=== PATIENT | female | born 1990 | race Caucasian/White ===

== ENCOUNTER 2025-06-14 13:36 | Emergency (ER) | payer BC, SELFPAY ==
--- OUTSIDE RECORDS SUMMARY | 2013-08-01 06:57 | XMS_ITS | Continuity of Care Document ---
Author Organization [facility] C Address [address] [place] [address] Phone Care Team Providers Care Office Equipment Technician Name Role Phone Jamilah STALLINGS, Mitchel Unavailable Unavailable Advance Directives Directive Yes / No Effective Date File Name No Information Encounters Encounter Description Practice Location Reason(s) For Visit Diagnoses Date Provider Encounter Disposition [facility], [address] [place], [address], [place] tel:[phone] [facility] No Information Jamilah Grullon. [address], [place], [address], [place]. tel:[phone] Family History Family Member Type Diagnosis Age At Onset No Information Payers Payer name Insurance type Identifiers Authorization(s) Com [facility] Claims [place] sreedhar ID: [id number] Name: Coverage Status Eligibility Check on: UnknownRelationship to Subscriber: selfPayer Address: [address], Claims Processing Dept, [place], [place], [facility], [facility] Phone: Social History Type Description Quantity Date Captured Comments Sex Female Yes - Patient is currently Smoking Status No Information Current Gender Female (finding) Chief Complaint And Reason For Visit No Information History Of Present Illness Encounter Date Complaint History Of Prese nt Illness No Information Functional Status Date Description Comments No Information Instructions Date Instruction Additional Infor mation No Information Assessments Type Assessment Date No Information
[2025-06-14 13:50] VITALS: BP 132/76; PULSE 82; RESP 18; TEMP 37; O2SAT 100; BMI 28.7
--- NOTE | 2025-06-14 13:55 | HMH.EDGENADL ---
Discharge Plan Referrals Follow up/Referrals: Ritika Murillo APRN [Primary Care Provider, Medical] - See instructions Activity Restrictions/Add. Instructions Additional Instructions/Restrictions: At this time it was felt you are safe to be discharged home. If new or worsening symptoms please do not hesitate to return the emergency department. Do not submerge your finger in water, ideally covered in a glove when you shower. Clinical Impressions Clinical Impression: Laceration of finger Instructions Patient Instructions: DI for Laceration Repair Print Language Print Language: Kuwaiti Discharge ED Provider: Judah Orr General Adult HPI General Chief complaint: Wound/Laceration Stated complaint: Laceration Middle Finger Left Hand Time Seen by Provider: 06/14/25 13:46 Mode of Arrival: Ambulatory Source of Information: Patient Description of Symptoms (Recalled from ER Triage Doc. by RN): PT cut her left middle finger with a knife about 30 minutes ago. History of Present Illness HPI narrative: Patient is a 35-year-old with no pertinent past medical history who presents to the emergency department for evaluation of a cut to the left middle fingertip. Onset was acute, cut it with a knife while cutting butter. No other traumatic injuries at this time. Please note that above description of symptoms, in this electronic medical record under categorization of recalled from ER triage doctor by RN are reflective of an initial nursing assessment, however, is not reflective of my full history and physical exam that was personally taken and clarified. Consequentially, this preceding description of symptoms, which may include the patient's categorized chief complaint in the EMR, do not reflect my personal clinical impression, and the ultimate description of history of present illness and patient stated complaints should be deferred to this section of the note. Unless stated otherwise or congruent with this section of the note, additional signs, symptoms, or incongruence should be interpreted as inaccurate with my clinical impression. [facility] Disclaimer: The information contained in this section may have been updated after the patient was seen, as this information can be updated by other users. Social History Smoking Status: Current every day smoker alcohol intake: never current occupational status: other Travel in the last 8 weeks?: None ROS Obtained: Yes Systems reviewed as appropriate & no additional complaints except as documented Physical Exam General General appearance: alert and in no apparent distress Head Head exam: atraumatic and normocephalic Eye Eye exam: Present PERRL and EOMI ENT ENT exam: Present mucous membranes moist Neck Neck exam: Present normal inspection Chest Chest inspection: Present normal inspection and symmetric chest wall rise Respiratory Respiratory exam: Absent respiratory distress Cardiovascular Cardiovascular exam: Present regular rate and normal rhythm Extremities Exam Extremities exam: Present other (1 cm linear laceration over the left third fingertip that is hemostatic and well-approximated.) Neurological Exam Neurological exam: Present alert Psychiatric Psychiatric exam: Present normal affect Skin Skin exam: Present warm and dry Medical Decision Making Medical Records Screening: Per USPSTF and CDC recommendations, given the prevalence of disease in our region, it is our hospital?s policy to screen for HIV and viral Hepatitis for all patients aged 18 and over and those with ongoing risk factors. Gm Inquiry Pt receiving controlled substance: No Vital Signs: 06/14/25 13:50 Temperature 98.6 F Temperature Source Oral Pulse Rate [Right] 82 Respiratory Rate 18 Blood Pressure [Right Arm] 132/76 Blood Pressure Mean [Right Arm] 94 Blood Pressure Source [Right Arm] Automatic Cuff Blood Pressure Position [Right Arm] Sitting 02 Sat by Pulse Oximetry 100 Oxygen Delivery Method Room Air Medical Decision Narrative: In summary patient is a 35-year-old female with past medical history described above who presents to the emergency department for evaluation of a laceration over her left middle finger. Patient is hemodynamically stable upon arrival. Wound is superficial and well opposed. Not over the joint. Was repaired with glue and then will be splinted in place to prevent secondary trauma to prevent reopening. X-ray imaging was considered but wound is not deep enough no concern for bony involvement or foreign body will be deferred. Tdap not up-to-date will be administered today. Patient is appropriate for outpatient management at this time. Procedure: Procedure performed was laceration repair. Procedure performed by skilled nursing case manager under my supervision. Wound was cleaned with Hibiclens after being soaked. Superficial laceration was repaired using Dermabond with good effect. Finger was splinted in place. Patient tolerated the procedure well there were no immediate complications. Critical Care Critical Care Time Critical Care Time: No
--- OUTSIDE RECORDS SUMMARY | 2025-06-14 13:59 | XMS_ITS | Clinical Summary ---
Author Organization [employer] ([place], [place], [place], [place], [place]) Address [address] [place] [address] Care Team Providers Care Auto Tester Name Role Phone Unavailable Primary Care Provider Unavailabl e Social History Tobacco Use Types Packs/Day Years Used Date Smoking Tobacco: Never Assessed Comments Unknown Sex and Gender Information Value Date Recorded Sex Assigned at Not on file Legal Sex Female 4:32 PM CDT Gender Identity Not on file Sexual Orientation Not on file Plan of Treatment Not on file
--- OUTSIDE RECORDS SUMMARY | 2025-06-14 13:59 | XMS_ITS | Encounter Summary ---
Author Organization [employer] ([place], [place], [place], [place], [place]) Address [address] [place] [address] Care Team Providers Care Pin Drafting Machine Tender Name Role Phone Unavailable Primary Care Provider Unavailleah e Encounter Details Date Type Department Care Team (Late st Contact Info) Description 09/26/2020 Transcribed Document [facility] Family Medicine [address] [place] [address] ProviderVargas MD [address] [place] [address] Social History Tobacco Use Types Packs/Day Years Used Date Smoking Tobacco: Never Assessed Comments Unknown Sex and Gender Information Value Date Recorded Sex Assigned at Not on file Legal Sex Female 4:32 PM CDT Gender Identity Not on file Sexual Orientation Not on file documented as of this encounter Miscellaneous Notes * Cerner Conversion Note - Vargas ProviderMD - 09/26/2020 12:58 PM CDT [facility] Main OR IntraOp Summary Primary Physician: CHLOÉ SNOW MD-CAP JEWEL PLATE ASSEMBLER Finalized Date/Time: 09/26/20 13:19:11 Pt. Name: JAQUELINE LOCKE /Sex: 1990 Female Med Rec #: [id number] Physician: CHLOÉ SNOW MD-CAP JEWEL PLATE ASSEMBLER Financial #: [id number] Pt. Type: O Room/Bed: Admit/Disch: 09/26/20 10:50:00 - Institution: Rm IntraOp Case Attendance Entry 1 Entry 2 Entry 3 Case Attendee CHLOÉ SNOW MD-CAP JEWEL PLATE ASSEMBLER Bee Pozo, JULIANA Carrasquillo Role Performed Surgeon/Proceduralist, Scrub, First Scrub, Second First Time In 09/26/20 12:38:00 09/26/20 12:38:00 09/26/20 12:38:00 Time Out 09/26/20 13:11:00 09/26/20 13:11:00 09/26/20 13:11:00 Procedure Hysteroscopy Operative Hysteroscopy Operative Hysteroscopy Operative Other Attendee Superficial Wound Closed By: Last Modified By: FELICIA KHAN RN MARX, CONNIE, RN MARX, CONNIE, RN 09/26/20 13:19:10 09/26/20 13:19:10 09/26/20 13:19:10 Entry 4 Entry 5 Case Attendee IKER MUNROE BILL DENNIS CONNIE, KELLIE MOBILE UI/UX DESIGNER Role Performed MOBILE UI/UX DESIGNER/Nurse Zoning Engineer Round Corner Cutter Operator, First Time In 09/26/20 12:38:00 09/26/20 12:38:00 Time Out 09/26/20 13:11:00 09/26/20 13:11:00 Procedure Hysteroscopy Operative Hysteroscopy Operative Other Attendee Superficial Wound Closed By: Last Modified By: FELICIA KHAN RN MARX, CONNIE, RN 09/26/20 13:19:10 09/26/20 13:19:10 [facility] IntraOp Case Attendance Audit 09/26/20 13:19:10 Multimedia Producer: AKIRA Modifier: MARXCO 1 <+> Time Out 1 <*> Procedure Hysteroscopy Operative 2 <+> Time Out 2 <*> Procedure Hysteroscopy Operative 3 <+> Time Out 3 <*> Procedure Hysteroscopy Operative 4 <+> Time Out 4 <*> Procedure Hysteroscopy Operative 5 <+> Time Out 5 <*> Procedure Hysteroscopy Operative 09/26/20 12:53:54 Multimedia Producer: [email or web address] Modifier: MARXCO <+> 1 Time In <+> 1 Procedure 2 <+> Time In 2 <*> Procedure Hysteroscopy Operative 3 <+> Time In 3 <*> Procedure Hysteroscopy Operative 4 <+> Time In 4 <*> Procedure Hysteroscopy Operative 5 <+> Time In 5 <*> Procedure Hysteroscopy Operative [facility] IntraOp Case Times Entry 1 Patient In Room Time 09/26/20 12:38:00 Out Room Time 09/26/20 13:11:00 Anesthesia Start Time 09/26/20 12:38:00 Stop Time 09/26/20 13:11:00 Anesthesia Ready 09/26/20 12:38:00 Surgery / Procedure Times Start Time 09/26/20 12:58:00 Stop Time 09/26/20 13:06:00 Last Modified By: FELICIA KHAN RN 09/26/20 13:18:48 [facility] IntraOp Case Times Audit 09/26/20 13:18:48 Multimedia Producer: AKIRA Modifier: MARXCO <+> 1 Out Room Time <+> 1 Stop Time <+> 1 Start Time <+> 1 Stop Time [facility] IntraOp Cautery Entry 1 ESU Identification Cautery Type Monopolar ESU ID Number [id number] ID Type Hospital Number Cautery Settings Cut Setting 0 Coag Setting 30 ESU Grounding Pad Ground Pad Type Adult Grounding Pad Site Left thigh Grounding Pad FELICIA KHAN RN Applied By Grounding Pad Site Intact Skin Condition Before Cautery Grounding Pad Site Unchanged Skin Condition After Cautery Last Modified By: FELICIA KHAN RN 09/26/20 12:31:27 [facility] IntraOp Communication Entry 1 Communication To Family/Significant other Communication By FELICIA KHAN RN Last Modified By: FELICIA KHAN RN 09/26/20 12:31:35 [facility] IntraOp Counts Verification Entry 1 Procedure Hysteroscopy Operative Count Info Count Type Sponge Counts Verification Baseline/pre-procedure Sequence Count Results Not Applicable Counts Performed By Count Performed By Bee Pozo Scub Tech (Scrub) Count Performed By FELICIA KHAN RN (RN) Last Modified By: FELICIA KHAN RN 09/26/20 12:31:49 [facility] IntraOp Counts Final Entry 1 Procedure Hysteroscopy Operative Final Count Info Count Type Sponge Counts Verification Skin Closure/end of Sequence procedure Count Results Correct, surgeon notified Counts Performed By Count Performed By Bee Pozo Scub Tech (Scrub) Count Performed By FELICIA KHAN, RN (RN) Last Modified By: FELICIA KHAN RN 09/26/20 13:19:00 [facility] IntraOp Counts Final Audit 09/26/20 13:19:00 Multimedia Producer: AKIRA Modifier: MARXCO 1 <*> Procedure Hysteroscopy Operative 1 <+> Count Results [facility] IntraOp Cultures and Spec Summary Entry 1 Cultrures and Specimens Specimen Ordered: Yes Test(s) Routine/Path-Lab Requested/Final Disposition Last Modified By: FELICIA KHAN RN 09/26/20 12:51:43 S[facility] IntraOp Departure from OR Entry 1 Integumentary Assessment Integumentary WDL Assessment WDL Transfer/Handoff Transfer to PACU Phase I Handoff Method Bedside/Face to face Post-op Transport Stretcher/Gurney Via Patient Transport FELICIA KHAN RN, Accompanied by IKER MUNROE CRNA Last Modified By: FELICIA KHAN RN 09/26/20 12:51:53 [facility] IntraOp Fire Risk Assessment Entry 1 Fire Info Surgical Site or 0- No Incision Above the Xyphoid Open O2 Source 0- No (Mask or Cannula) Available Ignition 1- Yes (ESU, Laser, Light Source) Fire Risk 1 Assessment Score Fire Score Fire Risk Yes Assessment Complete Fire Risk FELICIA KHAN RN Assessment Verified By Fire Risk 09/26/20 12:38:00 Assessment Verified Date/Time Fire Risk Last Modified By: FELICIA KHAN RN 09/26/20 12:52:20 S[facility] IntraOp General Case Inbound Ingredient Logistics Specialist 1 Case Information OR OR 10 SJE Case Level 1 Room Verified Yes Wound Class II - Clean-Contaminated Specialty Gynecology Anesthesia Type General ASA Class 2 Diagnosis Preop Diagnosis IUD complications Postop Same As Preop Yes Postop Diagnosis IUD complications Last Modified By: FELICIA KHAN RN 09/26/20 12:56:11 S[facility] IntraOp General Case Data Audit 09/26/20 12:56:11 Multimedia Producer: AKIRA Modifier: MARXCO <+> 1 ASA Class <+> 1 Anesthesia Type <+> 1 Postop Same As Preop <+> 1 Preop Diagnosis <+> 1 Postop Diagnosis <+> 1 Room Verified S[facility] IntraOp Intraoperative Assessment Entry 1 Valid History / Yes Physical in Chart Preoperative Yes Checklist Reviewed/Evaluated Allergies Reviewed Yes Patient is Latex No Sensitive Level of WDL Consciousness (WDL = Alert, Oriented to Person, Place, and Time) Skin Assessment Yes Verified Present Upon IVs Arrival to OR Last Modified By: FELICIA KHAN RN 09/26/20 12:52:26 S[facility] IntraOp Intraoperative Equipment Entry 1 Type Equipment Equipment Equipment Other Setting light source - tower Intraop Monitoring Antiembolic Devices Antiembolic Devices Sequential compression device, knee high Antiembolic Device Bilateral Location Antiembolic Device [id number] ID Number Scopes Photo/Video Documentation Photo No Video No Last Modified By: FELICIA KHAN RN 09/26/20 12:53:27 S[facility] IntraOp Patient Positioning Entry 1 Procedure Hysteroscopy Operative Left Arm Position Secured on padded arm board Right Arm Position Secured on padded arm board Left Leg Position Secured in stirrup Right Leg Position Secured in stirrup Feet Uncrossed Yes Pressure Points Yes Checked Positioning Devices Arm Board, Pillows, Stirrups/Leg [place], Sling Positioned By CHLOÉ SNOW MD-CAP JEWEL PLATE ASSEMBLER, FELICIA KHAN, KELLIE, IKER MUNROE, DARSHANA Position Verified Positioning Yes Verified by Anesthesia Positioning Yes Verified by Surgeon Last Modified By: FELICIA KHAN RN 09/26/20 12:53:46 SJE IntraOp Sign In Entry 1 Patient, Site, Yes Procedure Identified Surgical Consent Yes Confirmed Relevant Surgical Yes Documents Available Surgical Site N/A Marked by person performing procedure Anesthesia Machine Yes Check Completed Medication Checks Yes Completed Allergies Yes Airway Blood Loss Risk No Blood Loss No Intervention Equipment Prepared and Ready Hypothermia Risk Yes Warming Measures Yes Taken Last Modified By: FELICIA KHAN RN 09/26/20 12:54:51 SJE Intra Op Sign Out Entry 1 RN Confirmation Surgical Yes Procedure(s) Identified Instrument, Sponge Yes and Sharps Counts Correct/Documented Equipment Problems Yes Documented Specimen Labeled Yes Correctly Urinary Catheter Yes Documented in IView Vila Patient Yes Recovery Concerns Reviewed with Anesthesia Provider, Surgeon and RN Vila Patient Yes Management Concerns Reviewed with Anesthesia Provider, Surgeon and RN Safety Checklist Yes Elements Complete? RN Sign Out FELICIA KHAN RN Signature RN Sign Out 09/26/20 13:18:00 Signature Date/Time Plan of Care Outcome - Fire Risk OUTCOME STATEMENT: Goal met Patient is free from injury related to surgical fire Plan of Care Outcome - Pt Positioning OUTCOME STATEMENT: Goal met Absence of signs and symptoms of positioning injury. Plan of Care Outcome - Skin Prep OUTCOME STATEMENT: Goal met Intraoperative care is consistent with measures to prevent infection Plan of Care Outcome - Xray/Images OUTCOME STATEMENT: N/A Absence of observable signs or symptoms of radiation injury Plan of Care Outcome - Counts OUTCOME STATEMENT: Goal met Absence of signs and symptoms of injury related to extraneous objects Last Modified By: FELICIA KHAN RN 09/26/20 13:18:53 SJE Intra Op Sign Out Audit 09/26/20 13:18:53 Multimedia Producer: [email or web address] Modifier: MANOJO <+> 1 RN Sign Out Signature Date/Time SJE IntraOp Skin Prep Entry 1 Procedure Hysteroscopy Operative Prescribed N/A Pre-Surgical Prep Completed Prep Area VAGINA Intraop Prep Integumentary WDL Assessment WDL Prep Agents Betadine scrub Prep by FELICIA KHAN RN Hair Removal Last Modified By: FELICIA KHAN RN 09/26/20 12:55:45 SJE IntraOp Surgical Procedures Entry 1 Procedure Hysteroscopy Operative Additional HYSTEROSCOPY WITH IUD Procedure REMOVAL Description Primary Procedure Yes Primary Surgeon CHLOÉ SNOW MD-CAP JEWEL PLATE ASSEMBLER Start 09/26/20 12:58:00 Stop 09/26/20 13:06:00 Anesthesia Type General Specialty Gynecology Wound Class II - Clean-Contaminated Last Modified By: FELICIA KHAN RN 09/26/20 13:19:06 SJE IntraOp Surgical Procedures Audit 09/26/20 13:19:06 Multimedia Producer: AKIRA Modifier: AKIRA <+> 1 Start <+> 1 Stop SJE IntraOp Time Out Entry 1 Procedure to be Hysteroscopy Operative Performed Time Out Time Out Pause Time 09/26/20 12:58:00 All activity Yes suspended (unless life threatening emergency) Team Verbally Correct patient Confirms Information identity, Correct side and site are marked, Consent form is present and accurate, Agreement on the procedure to be done, Correct patient position, Relevant images/results properly labeled/appropriately displayed, Confirm antibiotics have been administered, Confirm the skin prep has dried, Confirm prosthesis/implant/devic e is present, Performed in location of procedure after prepped/draped, Performed before each procedure if multiple procedures, Reconcile problems if responses among team members differ Antibiotic Yes Prophylaxis Administered Or In Progress Within the Last 60 Minutes Beta Otilio N/A Administered Venous N/A Thromboembolism Prophylaxis Required Anticipated Critical Events Surgeon None expected Anesthesia Provider None expected Nursing Assures Sterility of instruments Essential Imaging N/A Labeled and Displayed Last Modified By: FELICIA KHAN RN 09/26/20 12:56:48 S[facility] IntraOp Time Out Audit 09/26/20 12:56:48 Multimedia Producer: AKIRA Modifier: AKIRA 1 <+> Time Out Pause Time 1 <*> Procedure to be Performed Hysteroscopy Operative Case Comments <None> Finalized By: BILL, FELICIA, RN Document Signatures Signed By: FELICIA KHAN RN 09/26/20 13:19 documented in this encounter Plan of Treatment Not on file documented as of this encounter Visit Diagnoses Not on filedocumented in this encounter
--- OUTSIDE RECORDS SUMMARY | 2025-06-14 13:59 | XMS_ITS | Encounter Summary ---
Author Organization [email or web address] ([place], [place], [place], [place], [place]) Address [address] [place] [address] Care Team Providers Care Civil Drafter Name Role Phone Unavailable Primary Care Provider Unavailleah e Encounter Details Date Type Department Care Team (Late st Contact Info) Description 09/26/2020 Transcribed Document [facility] [place] [facility] [address] [place] [address] ProviderVargas MD [address] [place] [address] Social History Tobacco Use Types Packs/Day Years Used Date Smoking Tobacco: Never Assessed Comments Unknown Sex and Gender Information Value Date Recorded Sex Assigned at Not on file Legal Sex Female 4:32 PM CDT Gender Identity Not on file Sexual Orientation Not on file documented as of this encounter Miscellaneous Notes * Cerner Conversion Note - Vargas Smith MD - 09/26/2020 1:49 PM CDT [facility] [address] [place] [address] JAQUELINE LOCKE :1990 Visit Time:09/26/2020 What to do next Your Diagnosis Unspecified complication of genitourinary prosthetic device, implant and graft, initial encounter, Unspecified complication of genitourinary prosthetic device, implant and graft, initial encounter Instructions From Your Care Team Nothing in vagina for 1 week. Keep follow up appointment. Can shower no tub baths Follow-Up Appointments Follow Up with CHLOÉ SNOW MD-ICE SKATER When 10/03/2020 10:10 AM EDT Where: [address] [facility] [address] [place] [address]- Medications What How Much When Instructions Next Dose atorvastatin (atorvastatin 40 mg oral tablet) Every Day Take your medications faithfully. Do NOT skip medication. Do NOT stop taking medications without the direction of a physician. Carry a list of your medications with you at all times, and take this medication list with you to your first follow up visit. Report any side effects. Avoid herbal remedies unless discussed with your physician. As part of your treatment plan, your physician may have prescribed a limited course of a controlled substance. This medication may be given to help people with moderate or severe pain or for other medical conditions, but there are risks involved with treatment. Common side effects may include nausea, constipation, drowsiness, sweating, itching, dry mouth, and rash. More serious side effects may include cognitive and motor impairment, like problems with thinking, concentrating, alertness, and movement (e.g. slowed reflexes), and driving and operating heavy machinery can be dangerous. It is important for you to talk to your physician if you have these side effects or questions. These controlled substances can produce physical dependence and be habit-forming if taken for an extended period of time, which means that the body has gotten used to them and may experience withdrawal symptoms if they are abruptly stopped. Withdrawal symptoms can include runny nose, sweating, goose bumps, diarrhea, abdominal cramping, rapid heartbeat, difficulty sleeping, and nervousness. Please dispose of unused and medications per pharmacy guidance. Education Materials General Anesthesia, Adult, Care After This sheet gives you information about how to care for yourself after your procedure. Your health care provider may also give you more specific instructions. If you have problems or questions, contact your health care provider. What can I expect after the procedure? After the procedure, the following side effects are common: ??? Pain or discomfort at the IV site. ??? Nausea. ??? Vomiting. ??? Sore throat. ??? Trouble concentrating. ??? Feeling cold or chills. ??? Weak or tired. ??? Sleepiness and fatigue. ??? Soreness and body aches. These side effects can affect parts of the body that were not involved in surgery. Follow these instructions at home: For at least 24 hours after the procedure: ??? Have a responsible adult stay with you. It is important to have someone help care for you until you are awake and alert. ??? Rest as needed. ??? Do not: ? Participate in activities in which you could fall or become injured. ? Drive. ? Use heavy machinery. ? Drink alcohol. ? Take sleeping pills or medicines that cause drowsiness. ? Make important decisions or sign legal documents. ? Take care of children on your own. Eating and drinking ??? Follow any instructions from your health care provider about eating or drinking restrictions. ??? When you feel hungry, start by eating small amounts of foods that are soft and easy to digest (bland), such as toast. Gradually return to your regular diet. ??? Drink enough fluid to keep your urine pale yellow. ??? If you vomit, rehydrate by drinking water, juice, or clear broth. General instructions ??? If you have sleep apnea, surgery and certain medicines can increase your risk for breathing problems. Follow instructions from your health care provider about wearing your sleep device: ? Anytime you are sleeping, including during daytime naps. ? While taking prescription pain medicines, sleeping medicines, or medicines that make you drowsy. ??? Return to your normal activities as told by your health care provider. Ask your health care provider what activities are safe for you. ??? Take whol-qxo-makylqb and prescription medicines only as told by your health care provider. ??? If you smoke, do not smoke without supervision. ??? Keep all follow-up visits as told by your health care provider. This is important. Contact a health care provider if: ??? You have nausea or vomiting that does not get better with medicine. ??? You cannot eat or drink without vomiting. ??? You have pain that does not get better with medicine. ??? You are unable to pass urine. ??? You develop a skin rash. ??? You have a fever. ??? You have redness around your IV site that gets worse. Get help right away if: ??? You have difficulty breathing. ??? You have chest pain. ??? You have blood in your urine or stool, or you vomit blood. Summary ??? After the procedure, it is common to have a sore throat or nausea. It is also common to feel tired. ??? Have a responsible adult stay with you for the first 24 hours after general anesthesia. It is important to have someone help care for you until you are awake and alert. ??? When you feel hungry, start by eating small amounts of foods that are soft and easy to digest (bland), such as toast. Gradually return to your regular diet. ??? Drink enough fluid to keep your urine pale yellow. ??? Return to your normal activities as told by your health care provider. Ask your health care provider what activities are safe for you. This information is not intended to replace advice given to you by your health care provider. Make sure you discuss any questions you have with your health care provider. Document Revised: 06/10/2018 Document Reviewed: 01/21/2018 [employer] Patient Education ?? 2020 [employer]. Hysteroscopy, Care After This sheet gives you information about how to care for yourself after your procedure. Your health care provider may also give you more specific instructions. If you have problems or questions, contact your health care provider. What can I expect after the procedure? After the procedure, it is common to have: ??? Cramping. ??? Bleeding. This can vary from light spotting to menstrual-like bleeding. Follow these instructions at home: Activity ??? Rest for 1???2 days after the procedure. ??? Do not douche, use tampons, or have sex for 2 weeks after the procedure, or until your health care provider approves. ??? Do not drive for 24 hours after the procedure, or for as long as told by your health care provider. ??? Do not drive, use heavy machinery, or drink alcohol while taking prescription pain medicines. Medicines ??? Take ylkm-jmr-byahvdh and prescription medicines only as told by your health care provider. ??? Do not take aspirin during recovery. It can increase the risk of bleeding. General instructions ??? Do not take baths, swim, or use a hot tub until your health care provider approves. Take showers instead of baths for 2 weeks, or for as long as told by your health care provider. ??? To prevent or treat constipation while you are taking prescription pain medicine, your health care provider may recommend that you: ? Drink enough fluid to keep your urine clear or pale yellow. ? Take owab-ild-acnpcsl or prescription medicines. ? Eat foods that are high in fiber, such as fresh fruits and vegetables, whole grains, and beans. ? Limit foods that are high in fat and processed sugars, such as fried and sweet foods. ??? Keep all follow-up visits as told by your health care provider. This is important. Contact a health care provider if: ??? You feel dizzy or lightheaded. ??? You feel nauseous. ??? You have abnormal vaginal discharge. ??? You have a rash. ??? You have pain that does not get better with medicine. ??? You have chills. Get help right away if: ??? You have bleeding that is heavier than a normal menstrual period. ??? You have a fever. ??? You have pain or cramps that get worse. ??? You develop new abdominal pain. ??? You faint. ??? You have pain in your shoulders. ??? You have shortness of breath. Summary ??? After the procedure, you may have cramping and some vaginal bleeding. ??? Do not douche, use tampons, or have sex for 2 weeks after the procedure, or until your health care provider approves. ??? Do not take baths, swim, or use a hot tub until your health care provider approves. Take showers instead of baths for 2 weeks, or for as long as told by your health care provider. ??? Report any unusual symptoms to your health care provider. ??? Keep all follow-up visits as told by your health care provider. This is important. This information is not intended to replace advice given to you by your health care provider. Make sure you discuss any questions you have with your health care provider. Document Revised: 05/20/2018 Document Reviewed: 07/06/2017 [employer] Patient Education ?? 2020 [employer] Emergency Awareness and Preventative Care STROKE is an EMERGENCY Every Minute Counts Act FAST and Check for these signs: FACE Does the face look uneven? ARM Does one arm drift down? SPEECH Does their speech sound strange? TIME Call at any sign of stroke Stroke Risk Factors Atrial Fibrillation (irregular heartbeat) Diabetes Family history of stroke Heart Disease Heavy alcohol use High Blood Pressure High Cholesterol Physical inactivity and obesity Smoking Cigarette Smoking The facts are clear, cigarette smoking will shorten your life. Smoking can cause many illnesses along the way. As a healthcare provider, we recommend that you stop smoking. Assistance with quitting is available by contacting 5-035-YAJW-NOW. This is a free resource providing counseling, support, and referral. Or you may contact your personal physician. National Suicide Prevention Lifeline: The National Suicide Prevention Lifeline is a national network of local crisis centers that provides free and confidential emotional support to people in suicidal crisis or emotional distress 24 hours a day, 7 days a week. Don't Wait! Stop a Heart Attack Before it Starts What is a heart attack? A heart attack is damage or to a part of the heart from severely decreased or lack of blood flow to the heart. Over time, arteries can become narrow from the buildup of fat and cholesterol, which is called plaque. The plaque can rupture causing a blood clot to form. When the blood clot forms, the artery can become severely narrowed or completely blocked, causing a heart attack. Heart attack is the leading cause of in the [place]. 85% of muscle damage occurs within the first 2 hours. Delay in the recognition of heart attack symptoms increases the chances of . Know the early symptoms of a heart attack: Nausea Feeling of fullness in chest Jaw Pain Pain that travels down one or both arms Fatigue/being tired Anxiety Back Pain Chest pressure, squeezing, or discomfort Shortness of breath Sweating, or a cold sweat Feeling of impending doom There are unusual signs of a heart attack, too! Women, the elderly, and diabetics may present with atypical symptoms: Fainting/dizziness Weakness Confusion Risk Factors for a Heart Attack Some heart disease risk factors, such as age and family history, cannot be changed. Others, like smoking and lack of exercise, can be changed. Smoking High Cholesterol High Blood Pressure Family History Obesity Age Gender (Males are at higher risk) Lack of Exercise Diabetes Diet Stress Excessive Alcohol Intake If you or someone you know is experiencing the signs and symptoms of a heart attack, DON???T DELAY. Call immediately and seek help. If someone collapses, perform CPR! Do not attempt to drive if you are having symptoms of heart attack. Hands-Only CPR Why Hands-Only CPR? Hands-Only CPR has been shown to be as effective as conventional CPR for cardiac arrests that occur outside of a hospital. Survival depends on immediately receiving CPR from someone nearby. How do you perform Hands-Only CPR? There are two easy steps: Call if you see a teen or adult collapse Push hard and fast in the center of the chest at a beat of 100 beats per minute. Save a life! 4 WAYS TO GET AHEAD OF SEPSIS SEPSIS is a MEDICAL EMERGENCY. Time matters! Infections put you and your family at risk for a life-threatening condition called sepsis. Sepsis is the body's extreme response to an infection. It is life-threatening, and without timely treatment, sepsis can rapidly lead to tissue damage, organ failure, and . Sepsis happens when an infection you already have-in your skin, lungs, urinary tract or somewhere else-triggers a chain reaction throughout your body. 1 PREVENT INFECTIONS Take good care of chronic conditions. Talk to your doctor about getting the recommended vaccines. 2 PRACTICE GOOD HYGIENE Wash your hands frequently. Keep cuts or open sores clean and covered until they are healed. 3 KNOW THE SYMPTOMS Confusion or disorientation Shortness of breath High heart rate Fever, shivering, or feeling very cold Extreme pain or discomfort Clammy or sweaty skin 4 ACT FAST Get medical care IMMEDIATELY if you suspect sepsis or if you have an infection that is not getting better or is getting worse. To learn more about sepsis and how to prevent infections, visit www.cdc.gov/sepsis. Test Results Laboratory or Other Results This Visit (last charted value for your 09/26/2020 visit) Microbiology 09/24/2020 6:51 PM SARS-CoV-2 (COVID19 PCR): Negative Endocrinology 09/26/2020 11:09 AM HCG Urine Qualitative: Negative Patient Name:JAQUELINE LOCKE I have received this information and was given the opportunity to ask questions. Patient/Transportation Analyst Name: Patient/Transportation Analyst Signature: Relationship to Patient: Clinician/Hospital Transportation Analyst Signature: Date: Electronically signed by Meron, [facility] Conversion Lead Loader Samantha at 10/08/2022 1:52 PM CDT documented in this encounter Plan of Treatment Not on file documented as of this encounter Visit Diagnoses Not on filedocumented in this encounter
--- OUTSIDE RECORDS SUMMARY | 2025-06-14 13:59 | XMS_ITS | Referral Summary ---
Author Organization [employer] ([place], [place], [place], [place], [place]) Address [address] [place] [address] Care Team Providers Care Physician Coding Specialist Name Role Phone Unavailable Primary Care Provider [...]
--- OUTSIDE RECORDS SUMMARY | 2025-06-14 13:59 | XMS_ITS | Encounter Summary ---
Author Organization [employer] ([place], [place], [place], [place], [place]) Address [address] [place] [address] Care Team Providers Care Lamination Operator Name Role Phone Unavailable Primary Care Provider Shauna e Encounter Details Date Type Department Care Team (Late st Contact Info) Description 09/26/2020 Transcribed Document [facility] [place] [facility] [place] [address] ProviderVargas MD [address] [place] [address] Social History Tobacco Use Types Packs/Day Years Used Date Smoking Tobacco: Never Assessed Comments Unknown Sex and Gender Information Value Date Recorded Sex Assigned at Not on file Legal Sex Female 4:32 PM CDT Gender Identity Not on file Sexual Orientation Not on file documented as of this encounter Miscellaneous Notes * Cerner Conversion Note - Vargas Smith MD - 09/26/2020 1:18 PM CDT DATE OF PROCEDURE: SURGEON: Franco Sharpe MD PREOPERATIVE DIAGNOSIS: Retained IUD. POSTOPERATIVE DIAGNOSIS: Retained IUD. PROCEDURE PERFORMED: Hysteroscopic removal of intrauterine device. COMPLICATIONS: None. ESTIMATED BLOOD LOSS: Minimal. OPERATIVE PROCEDURE: The patient was brought back to the operating room, identified, anesthetized, situated, and sterilely prepped and draped in normal fashion for the aforementioned procedure. A time-out was performed. A speculum was placed in the vagina. The anterior aspect of the cervix was grasped with single-tooth tenaculum. The cervix was gently dilated. A hysteroscope was placed. The IUD was visualized in the endometrial cavity. The strings were free-floating. The strings were grasped using a hysteroscopic grasper. The IUD was removed. The endometrial cavity was within normal limits. The patient tolerated the procedure well. There were no intraoperative complications. She will go home on Motrin and see me back in a week. /[id number] MD SARAH Simon/LUCI / SARAH / KAREN /[id number] Electronically signed by [facility] Conversion Emergency Registrar Cerner at 10/08/2022 1:51 PM CDT documented in this encounter Plan of Treatment Not on file documented as of this encounter Visit Diagnoses Not on filedocumented in this encounter
--- OUTSIDE RECORDS SUMMARY | 2025-06-14 13:59 | XMS_ITS | Encounter Summary ---
Author Organization [employer] ([place], [place], [place], [place], [place]) Address [address] [place] [address] Care Team Providers Care Education Liaison Name Role Phone Unavailable Primary Care Provider Unavailabl e Encounter Details Date Type Department Care Team (Late st Contact Info) Description 09/26/2020 Transcribed Document [facility] [place] Family Medicine [address] [place] [address] ProviderVargas MD [address] [place] [address] Social History Tobacco Use Types Packs/Day Years Used Date Smoking Tobacco: Never Assessed Comments Unknown Sex and Gender Information Value Date Recorded Sex Assigned at Not on file Legal Sex Female 4:32 PM CDT Gender Identity Not on file Sexual Orientation Not on file documented as of this encounter Miscellaneous Notes * Cerner Conversion Note - Vargas ProviderMD - 09/26/2020 11:39 AM CDT PAT Adult Entered On: 09/26/2020 11:40 EDT Performed On: 09/26/2020 11:39 EDT by Bhavya Arenas RN Vital Measurements Temperature Source : Temporal artery scanning Temperature Mode : Fahrenheit Temperature, Fahrenheit : 97.8 Deg F Clinical Temperature, C : 36.6 Deg C Peripheral Pulse Rate : 84 bpm Pulse Rhythm : Regular Respiratory Rate : 16 Breaths/Min Systolic Blood Pressure : 118 mmHg Diastolic Blood Pressure : 72 mmHg Oxygen Saturation : 99 % Oxygen Therapy Mode : Room air Bhavya Arenas RN - 09/26/2020 12:00 EDT Pain Assessment Pain Assessment : Initial assessment Pain Scale Used : 0-10 Scale Bhavya Arenas RN - 09/26/2020 12:00 EDT Height and Weight, Clinical Dosing Height Source : Stated Height Entry Format : [place] Height, Feet : 5 ft(Converted to: 152 cm, 60 Inch) Height, Inches : 3 Inch(Converted to: 0 ft 3 Inch, 7.62 cm) Clinical Height : 160.02 cm Weight Source : Standing scale Weight Entry Format : [place] Clinical Dosing Weight : 76.36 kg Weight, Pounds : 168 lb Body Surface Area (BSA) : 1.8 m2 Body Mass Index : 29.8 kg/m2 (HI) [place] Body Weight : 52 kg Bhavya Arenas RN - 09/26/2020 11:39 EDT Health Histories Smoking Status : Former smoker, quit more than 30 days ago Smokeless Tobacco Status : Never Implant/Device Type, Milk Powder Grinder and Model : IUD Bhavya Arenas RN - 09/26/2020 12:00 EDT Social History (As Of: 09/26/2020 12:05:09 EDT) Infectious Disease History Has the patient ever been tested for COVID-19? : Yes, Patient stated results Negative Where are the test results? : In EMR Results Date of COVID-19 test known? : Yes Date of COVID-19 Test : 09/24/2020 EDT Does patient have symptoms of COVID-19? : No COVID19 Screening : No Experiencing Infectious Disease Symptoms : No symptoms Physical contact outside [place] in the last 30 days : No Infectious Disease History : None Tuberculosis Symptoms : None Bhavya Arenas RN - 09/26/2020 12:00 EDT COVID19 PreProcedure Screening Is this an Emergent or Add on Procedure? : No Date PreProcedure COVID-19 test known? : Yes Date of PreProcedure COVID-19 : 09/24/2020 EDT Has patient been isolated since the test : Yes Exposed to COVID19 symptoms since test? : No Bhavya Arenas RN - 09/26/2020 12:00 EDT Anesthesia/Transfusion History Family History of Anesthesia Reaction : No prior transfusion(s) Transfusion History : Prior anesthesia without reaction Family History of Anesthesia Reaction : None Bhavya Arenas RN - 09/26/2020 12:00 EDT Functional Assessment Functional ADL Evaluation Index EBN Bathing : Independent (2) Dressing : Independent (2) Toileting : Independent (2) Transferring Bed or Chair : Independent (2) Continence : Independent (2) Feeding : Independent (2) Bhavya Arenas RN - 09/26/2020 12:00 EDT ADL Index Score : 12 Bhavya Arenas RN - 09/26/2020 12:00 EDT Advance Directive Patient has Advance Directive *Q : No, patient refuses Advance Directive information Bhavya Arenas RN - 09/26/2020 12:00 EDT Spiritual/Cultural Needs Any Spiritual/Cultural Needs or Requests : No Bhavya Arenas RN - 09/26/2020 12:00 EDT [place] Suicide Severity Rating Scale (C-SSRS) CSSRS Past Month Wish to be : No CSSRS Past Month Suicidal Thoughts : No CSSRS Lifetime Suicide Behavior : No Suicide Severity Rating Score : 0 Suicide Severity Rating : No Additional Care Required at this time Bhavya Arenas RN - 09/26/2020 12:00 EDT Psychosocial History Currently in Unsafe Situation : No Bhavya Arenas RN - 09/26/2020 12:00 EDT Teaching/Learning Assessment Individuals Taught : Patient Readiness to Learn : Cooperative Readiness to Learn : Explanation Bhavya Arenas RN - 09/26/2020 12:00 EDT General Info Arrived From : Home Mode of Arrival on Unit : Ambulatory Patient Arrival Date/Time : 09/26/2020 10:55 EDT Legal Guardian : Spouse Want Family/Rep/Phys Notified of Admit : No Emergency Contact #1 : Alee Locke Emergency Contact #1 Emergency Contact #1 Relationship : spouse Emergency Contact #2 : none Emergency Contact #2 Phone Number : none Emergency Contact #2 Relationship : none Primary Language : U[place] Communication Barrier : None Manager Distribution Needed : No Bhavya Arenas RN - 09/26/2020 12:00 EDT Harvey Scale Harvey Sensory Perception : No impairment Harvey Moisture : Rarely moist Harvey Activity : Walks frequently Harvey Mobility : No limitation Harvey Nutrition : Excellent Harvey Friction and Shear : No apparent problem Harvey Score : 23 Bhavya Arenas RN - 09/26/2020 12:00 EDT Sleep Apnea Risk Assmt Hx of Obstructive Sleep Apnea Diagnosis : No Snore Loudly : No Tired, Fatigued, or Sleepy During Day : No Observed Stopping Breathing During Sleep : No Have/Are Being Treated for Hypertension : No BMI Greater Than 35 kg/m2 : No Age over 50 Years Old : No Neck Circumference Greater Than 40 cm : No Gender Male : No STOP-BANG Sleep Apnea Risk Level Score : 0 Bhavya Arenas RN - 09/26/2020 12:00 EDT Pain Scale Intensity : 0 Bhavya Arenas RN - 09/26/2020 12:00 EDT Image 4 - Images currently included in the form version of this document have not been included in the text rendition version of the form. documented in this encounter Plan of Treatment Not on file documented as of this encounter Visit Diagnoses Not on filedocumented in this encounter
--- OUTSIDE RECORDS SUMMARY | 2025-06-14 13:59 | XMS_ITS | Encounter Summary ---
Author Organization [facility] [employer] [facility] ([place], [place], [place], [place], [place]) Address [address] [place] [address] Care Team Providers Care Tennis Ball Coverer Hand Name Role Phone Unavailable Primary Care Provider Unavailleah e Encounter Details Date Type Department Care Team (Late st Contact Info) Description 09/26/2020 Transcribed Document [facility] [place] [address] [place] [address] ProviderVargas MD [address] [place] [address] Social History Tobacco Use Types [...] 09/26/2020 12:58 PM CDT [facility] Main OR PreOp Summary Primary Physician: CHLOÉ SNOW MD-CAP AND HAT PRODUCTION SUPERVISOR Finalized Date/Time: 09/30/20 18:17:55 Pt. Name: JAQUELINE LOCKE /Sex: 1990 Female Med Rec #: [id number] Physician: CHLOÉ SNOW MD-CAP AND HAT PRODUCTION SUPERVISOR Financial #: [id number] Pt. Type: O Room/Bed: Admit/Disch: 09/26/20 10:50:00 - 09/26/20 14:03:00 Institution: [facility] [place] PreOp Case Times Entry 1 In Preop 09/26/20 10:55:00 Ready for Holding n/a Room Patient Ready for 09/26/20 11:45:00 Surgery Patient Out of Preop 09/26/20 12:36:00 Patient Out of n/a Holding Room Last Modified By: Hoda Medina, Social Sciences Chair-Nursing 09/30/20 18:17:53 [facility] PreOp Case Times Audit 09/30/20 18:17:53 Used Car Lot Porter: [id number] Modifier: [id number] <+> 1 Patient Out of Preop Finalized By: Hoda Medina, Social Sciences Chair-Nursing Document Signatures Signed By: Hoad Medina, Social Sciences Chair-Nursing 09/30/20 18:17 Electronically signed by Bronwyn Chance Conversion Surplus Property Disposal Agent Cerner at 10/08/2022 1:49 PM CDT documented in this encounter Plan of Treatment Not on file documented as of this encounter Visit Diagnoses Not on filedocumented in this encounter
--- OUTSIDE RECORDS SUMMARY | 2025-06-14 13:59 | XMS_ITS | Encounter Summary ---
Author Organization [employer] ([place], [place], [place], [place], [place]) Address [address] [place] [address] Care Team Providers Care Chief Dietitian Name Role Phone Unavailable Primary Care Provider Unavailleah e Encounter Details Date Type Department Care Team (Late st Contact Info) Description 09/26/2020 Transcribed Document [facility] [place] [address] [place] [address] ProviderVargas MD [address] [place] [address] Social History Tobacco Use Types Packs/Day Years Used Date Smoking Tobacco: Never Assessed Comments Unknown Sex and Gender Information Value Date Recorded Sex Assigned at Not on file Legal Sex Female 4:32 PM CDT Gender Identity Not on file Sexual Orientation Not on file documented as of this encounter Miscellaneous Notes * Cerner Conversion Note - Vargas Smith MD - 09/26/2020 1:47 PM CDT Patient Education Materials Follows: General Anesthesia, Adult, Care After This sheet [...] activities are safe for you. ??? Take ucrs-xvv-mjucyvj and prescription medicines only as told by [...] provider. Document Revised: 06/10/2018 Document Reviewed: 01/21/2018 [employer] Patient Education ? 2019 [employer]. Hysteroscopy, Care After This sheet gives you [...] instructions at home: Activity ??? Rest for 1?2 days after the procedure. ??? Do not [...] taking prescription pain medicines. Medicines ??? Take wsmb-bhn-bmwuzll and prescription medicines only as told by [...] urine clear or pale yellow. ? Take rpnd-mkx-nehkzpz or prescription medicines. ? Eat foods that [...] provider. Document Revised: 05/20/2018 Document Reviewed: 07/06/2017 [employer] Patient Education ? 2020 [employer]. documented in this encounter Plan of Treatment Not on file documented as of this encounter Visit Diagnoses Not on filedocumented in this encounter
--- OUTSIDE RECORDS SUMMARY | 2025-06-14 13:59 | XMS_ITS | Clinical Summary ---
Author Organization [facility] Address [address] [place] [address] Care Team Providers Care Adult Probation Officer Name Role Phone Nanette Choudhary MD Primary Care Provider [phone] Allergies Active Allergy Reactions Criticality Noted Date Comments Amoxicillin Rash Low 09/15/2010 Medications levonorgestrel (MIRENA) 20 MCG/24HR IUD 1 each by Intrauterine route 1 (One) Time. Active valACYclovir (VALTREX) 1000 MG tablet valacyclovir 1 gram tablet 9 Active benzonatate (TESSALON) 200 MG capsule Take 1 capsule by mouth 3 (Three) Times a Day As Needed for Cough. 30 capsule 0 Active Vit-Fe Fumarate-FA ( 27-1) 27-1 MG tablet tablet Take 1 tablet by mouth Daily. 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 Allergic rhinitis 06/18/2018 Overview (06/18/2018): Overview: replace inactive diagnosis Anxiety disorder 06/18/2018 Major depressive disorder, recurrent episode Immunizations Immunization Administration Dates Next Due Flu Vaccine Quad PF >36MO 05/09/2015,06/12/2014 Family History Medical History Relation Name Comments Diabetes Father Diabetes Mother Relation Name Status Comments Father Alive Mother Alive Social History Tobacco Use Types Packs/Day Years Used Date Smoking Tobacco: Former Cigarettes Q uit: 2020 Smokeless Tobacco: Never Tobacco Cessation:Counseling Given: No Alcohol Use Standard Drinks/Week Comments Never 0 (1 standard drink = 0.6 oz pur e alcohol) AUDIT-C Answer Date Recorded Frequency of Alcohol Consumption Never 08/18/2019 Average Number of Drinks Not on file 020 Frequency of Binge Drinking Not on file 07/23 Abuse Screen Answer Date Recorded Unsafe at Home or Work/School Not on file Feels Threatened by Someone? Not on file 01/2023 Does Anyone Keep You from Co ntacting Others or Doint Things Outside the Home? Not on file 03/28/2023 Physical Sign of Abuse Present Not on file 1 Housing Stability Answer Date Recorded Current Living Arrangements Not on file 01/2023 Potentially Unsafe Housing Conditions Not on kaushik e 03/28/2023 Family and Community Support Answer Carroll e Recorded Help with Day-to-Day Activities Not on file 03/28/2023 Lonely or Isolated Not on file 03/28/2023 Employment Answer Date Recorded Do you want help finding or keeping work or a elizabeth b? Not on file 03/28/2023 Disabilities Answer Date Recorded Concentrating, Remembering, or Making Decisions Difficulty Not on file 03/28/2023 Doing Errands Independently Difficulty Not on fi le 03/28/2023 Education Answer Date Recorded Help with school or training? Not on file Preferred Language Not on file 03/28/2023 Comments No Sex and Gender Information Value Date Recorded Sex Assigned at Not on file Legal Sex Female 10:50 AM EDT Gender Identity Not on file Sexual Orientation Not on file Last Filed Vital Signs Vital Sign Reading Time Taken Comments Blood Pressure 117/75 12/23/2021 8:02 AM EDT Pulse 82 08/18/2019 6:38 PM EST Temperature 36.8 C (98.3 F) 08/18/2019 6:38 PM EST Respiratory Rate 20 08/18/2019 6:38 PM EST Oxygen Saturation 98% 08/18/2019 6:38 PM EST Inhaled Oxygen Concentration - - Weight 81.5 kg (179 lb 9.6 oz) 12/23/2021 8:02 A M EDT Height 160 cm (5' 3 ) 08/18/2019 6:38 PM EST Body Mass Index 31.81 08/18/2019 6:38 PM EST Plan of Treatment Health Maintenance Due Date Last Done Comments Annual Gynecologic Pelvic an d Breast Exam 1990 TDAP/TD VACCINES (1 - Tdap) 2011 ANNUAL PHYSICAL 04/23/2016 HEPATITIS C SCREENING 04/23/2016 INFLUENZA VACCINE 01/19/2025 05/09/2015, 06/12/2014 Pneumococcal Vaccine 0-49 Aged Out No longer eligible based on patient's age to complete this topic Insurance [facility] PPO Care Teams Adult Probation Officer Relationship Specialty Start Date End Date Nanette Choudhary MD PCP - General 01/31/15
--- OUTSIDE RECORDS SUMMARY | 2025-06-14 13:59 | XMS_ITS | Encounter Summary ---
Author Organization [facility] ([place], [place], [place], [place], [place]) Address [address] [place] [address] Care Team Providers Care Photographic Developer And Printer Name Role Phone Unavailable Primary Care Provider Unavailleah e Encounter Details Date Type Department Care Team (Late st Contact Info) Description 09/26/2020 Transcribed Document [facility] [place] [address] [place] [address] ProviderVargas MD [address] [place] [address] Social History Tobacco Use Types [...] 09/26/2020 12:58 PM CDT [facility] Main OR PACU Summary Primary Physician: CHLOÉ SNOW MD-PUNCHER AND FASTENER Finalized Date/Time: 09/26/20 14:19:32 Pt. Name: JAQUELINE LOCKE /Sex: 1990 Female Med Rec #: [id number] Physician: CHLOÉ SNOW MD-PUNCHER AND FASTENER Financial #: [id number] Pt. Type: O Room/Bed: Admit/Disch: 09/26/20 10:50:00 - Institution: [facility] [place] Main [place] PACU Case Times Entry 1 In PACU I 09/26/20 13:14:00 Ready for PACU 09/26/20 13:44:00 Discharge Discharge from PACU 09/26/20 13:44:00 I Last Modified By: OG Noguera 09/26/20 13:37:17 Finalized By: OG Noguera Document Signatures Signed By: OG Noguera 09/26/20 14:19 documented in this encounter Plan of Treatment Not on file documented as of this encounter Visit Diagnoses Not on filedocumented in this encounter
--- OUTSIDE RECORDS SUMMARY | 2025-06-14 13:59 | XMS_ITS | Encounter Summary ---
Author Organization [employer] ([place], [place], [place], [place], [place]) Address [address] [place] [address] Care Team Providers Care Inspector Aligning Name Role Phone Unavailable Primary Care Provider Unavailleah e Encounter Details Date Type Department Care Team (Late st Contact Info) Description 09/26/2020 Transcribed Document [facility] [place] [address] [place] [address] ProviderVargas MD [address] [place] [address] Social History Tobacco Use Types [...] 09/26/2020 12:58 PM CDT [facility] Main OR PostOp Summary Primary Physician: CHLOÉ SNOW MD-RADIOTELEGRAPH OPERATOR Finalized Date/Time: 09/26/20 14:03:19 Pt. Name: JAQUELINE LOCKE /Sex: 1990 Female Med Rec #: [id number] Physician: CHLOÉ SNOW MD-RADIOTELEGRAPH OPERATOR Financial #: [id number] Pt. Type: O Room/Bed: Admit/Disch: 09/26/20 10:50:00 - Institution: [facility] Main OR PostOp Case Times Entry 1 In PACU II 09/26/20 13:44:00 Ready for PACU II 09/26/20 14:03:00 Discharge Discharge from PACU 09/26/20 14:03:00 II Last Modified By: Missy Morris, KELLIE 09/26/20 14:03:17 [facility] Main OR PostOp Case Times Audit 09/26/20 14:03:17 Ssds Mk 2 Advanced Operator: ANNMARIE Modifier: CARRIEC <+> 1 Ready for PACU II Discharge <+> 1 Discharge from PACU II Finalized By: Missy Morris RN Document Signatures Signed By: Missy Morris RN 09/26/20 14:03 documented in this encounter Plan of Treatment Not on file documented as of this encounter Visit Diagnoses Not on filedocumented in this encounter
[2025-06-14] MEDS: TET/DIPHTH/PERT-ADULT 0.5ML SYRINGE 0.5 ML IM (14:09)
[2025-06-14 14:16] VITALS: BP 132/76; PULSE 82; RESP 18; TEMP 37; O2SAT 100
== END 2025-06-14 14:17 | disposition home or self-care (01) ==
PROVIDERS: Emergency Provider Emergency Medicine; PCP Nurse Practitioner Family
DX: S61.213A Laceration without foreign body of left middle finger without damage to nail, initial encounter (principal); W26.0XXA Contact with knife, initial encounter; Y93.G1 Activity, food preparation and clean up; F17.200 Nicotine dependence, unspecified, uncomplicated; Z23 Encounter for immunization
CPT/HCPCS: 12001; 90471; 90715; 99283